=== PATIENT | female | born 1955 | race Caucasian/White ===

== ENCOUNTER 2017-04-03 03:58 | Emergency (ER) | payer MEDICAID, OTHER ==
[~2017-04-03] VITALS: Ht 160 cm; Wt 44.0 kg
[~2017-04-03 03:58] MED LIST: ACET-2619 PO; AMIO200T PO; ASCO500S14 PO; ASPI81CT89 PO; ATI.5 PO; ATOR40TA PO; BISA5ECT2 PO; CARV3.12 PO; CLOP75TA PO; EPOE10002 SUBQ; FAMO-90 PO; FERR-193 PO; FURO-572 PO; GABA300C PO; LEVEMIR SUBQ; MAGN400T11 PO; MIRABULK PO; MIRT30TA PO; MSCON15 PO; MULT-2173 PO; NUTR30LI5 PO; SENN8.6T37 PO; [UNRECOGNIZED DRUG - CODE] PO
--- NOTE | 2017-04-03 03:58 | NUR ---
0351- PT BIBA BLS. TAKEN TO BED 3
[2017-04-03 04:00] VITALS: BP 132/76
--- NOTE | 2017-04-03 04:00 | NUR ---
BIBA WITH C/O PAIN ON HER LEFT KNEE, S/P FALL UNWITNESSED.PATIENT ALERT AND CRYING
--- NOTE | 2017-04-03 04:04 | NUR ---
Dr. Sanchez evaluating patient at bedside.
[2017-04-03] MEDS ORDERED: HYDROmorphone PFS 2 MG/ML SYR IM ONE (04:10)
[2017-04-03 04:33] LABS: HEMATOCRIT 41.6 % (36-48); HEMOGLOBIN 13.2 g/dL (12.0-16.0); MEAN CORPUSCULAR HEMOGLOBIN 28 pg (27-31); MEAN CORPUSCULAR HGB CONC 32 g/dL (33-37); MEAN CORPUSCULAR VOLUME 89 fL (80-94); PLATELET COUNT (AUTO) 184 K/uL (140-450); RED BLOOD CELL COUNT(AUTO) 4.66 MIL/uL (4.20-5.40); RED CELL DISTRIBUTION WIDTH 15.9 % (11.6-13.7); WHITE BLOOD COUNT (AUTO) 11.9 K/uL (4.8-10.8)
[2017-04-03] MEDS ORDERED: MORPHINE SULFATE 4 MG/ML SYR IM ONE (04:45)
[2017-04-03 04:48] LABS: LYMPHOCYTES % (MANUAL) 19 % (20-46); MONOCYTES % (MANUAL) 1 % (5-12)
[2017-04-03 04:53] LABS: ALBUMIN 2.9 g/dL (3.4-5.0); ANION GAP 8.6 (8-16); CARBON DIOXIDE 32.6 mmol/L (21-32); CREATININE 0.8 mg/dL (0.6-1.3); POTASSIUM 4.2 mmol/L (3.5-5.1); TOTAL BILIRUBIN 0.2 mg/dL (0.0-1.0)
[2017-04-03 04:58] LABS: PROTHROMBIN TIME 9.9 secs (10.8-13.4)
--- NOTE | 2017-04-03 06:00 | NUR ---
ALL RESULTS BACK AND NOTED BY ERMD AND FOR D/C.
[2017-04-03] MEDS ORDERED: MORPHINE SULFATE 5 MG/ML VIAL IM ONE (06:05)
--- NOTE | 2017-04-03 06:20 | NUR ---
REPORT GIVEN TO PRISCA CASANOVA.
--- NOTE | 2017-04-03 07:26 | NUR ---
ASSUMED PATIENT CARE, CONCUR WITH PREVIOUS CARE AND ASSESSMENTS, PATIENT ASLEEP AT THIS TIME. AWAITING MEDICAL TRANSPORT FOR [place]SF[place] [facility] [place]
[2017-04-03 07:51] VITALS: BP 111/75
--- NOTE | 2017-04-03 07:53 | NUR ---
PICKED UP BY AMBULANCE PERSONNEL FOR [place]SF[place] BACK [place] [facility] [place] CARE ENDORSED TO MEDICS.
== END 2017-04-03 07:53 ==
LOC: MED 03:58
DX: S82.142A Displaced bicondylar fracture of left tibia, initial encounter for closed fracture (principal); E11.9 Type 2 diabetes mellitus without complications; I10 Essential (primary) hypertension; Z89.512 Acquired absence of left leg below knee; Z79.899 Other long term (current) drug therapy; Z79.82 Long term (current) use of aspirin; W19.XXXA Unspecified fall, initial encounter; Y93.89 Activity, other specified; Y92.89 Other specified places as the place of occurrence of the external cause; Y99.8 Other external cause status
CPT/HCPCS: 36415; 73562; 80053; 84484; 85025; 85610; 93005; 96372; 99285; J1170; J2270; Q0092

== ENCOUNTER 2017-10-30 22:11 | Inpatient (IN) | payer MEDICAID ==
[~2017-10-30] VITALS: Ht 154.9 cm; Wt 52.2 kg
[2017-10-30 22:11] VITALS: BP 134/76
[~2017-10-30 22:11] MED LIST changes: -FERR-193 PO; +FERR-20 PO
--- NOTE | 2017-10-30 22:56 | NUR ---
GAVE REPORT TO MONET CASANOVA
--- NOTE | 2017-10-30 23:05 | NUR ---
patient biba with c/o pain in left knee and cough . DENIES N/V/D;skin has edema, redness with bruising throught arms and legs. 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 AAOX4 WITH EVEN AND STEADY GAIT; LUNGS CLEAR BL; HR EVEN AND REGULAR; PT DENIES ANY FEVER, CP, SOB AT THIS TIME; PATIENT STATES PAIN OF 6/10 AT THIS TIME; VSS; PATIENT POSITIONED FOR COMFORT; HOB ELEVATED; BEDRAILS UP X2; BED DOWN. ER MD MADE AWARE OF PT STATUS.
--- NOTE | 2017-10-31 01:15 | NUR ---
pt was placed on bed moore, was not able to produce urine
--- NOTE | 2017-10-31 01:26 | NUR ---
patient refused straight cath. no urine was collected
[2017-10-31] MEDS ORDERED: LEVOFLOXACIN 750 MG TAB PO ONE (02:10)
--- NOTE | 2017-10-31 02:24 | NUR ---
OK PER DR HATFIELD TO GIVE LEVAQUIN WITHOUT LABS BEING DRAWN AND NO URINE OBTAINED AT THIS TIME.
--- NOTE | 2017-10-31 04:26 | NUR ---
pt is resting in bed
[2017-10-31 04:50] LABS: ANION GAP 16.6 (8-16); CARBON DIOXIDE 19.7 mmol/L (21-32); POTASSIUM 5.3 mmol/L (3.5-5.1)
[2017-10-31 04:56] LABS: TOTAL BILIRUBIN 0.8 mg/dL (0.0-1.0)
[2017-10-31] MEDS ORDERED: NACL 0.9% 1,000 ML IV SCH (05:03)
[2017-10-31] MEDS ORDERED: ALBUTEROL SULFATE/IPRATROPIU 3 ML SOL IH PRN (05:10)
--- NOTE | 2017-10-31 05:10 | NUR ---
Pt transferred to ICU8 viaBED WITH JOCELYNE ALICIA AND JOCELYNE HEALY .
[2017-10-31] MEDS ORDERED: LORazepam 0.5 MG TAB PO PRN (05:15)
[2017-10-31] MEDS ORDERED: ACETAMINOPHEN 325 MG TAB PO PRN (05:15)
--- NOTE | 2017-10-31 05:20 | NUR ---
RECEIVED PT FROM ER AT 0515. PT STABLE AT THIS TIME. AFEBRILE. ANXIOUS. C/O PAIN ON LEFT STUMP. PT AAOX1. NO SIGNS OF DISTRESS NOTED. AFIB ON MONITOR. SBP BETWEEN HIGH 90S AND LOW 100S. NO C/O CHEST PAIN. LUNG SOUNDS RHONCHI. PT HAS COUGH. PT IN ROOM AIR. DOES NOT APPEAR TO BE IN ANY DISTRESS. ABDOMEN ROUND, SOFT AND NONDISTENDED. RECEIVED PT WITH SMALL BM THAT IS LIGHT BROWN TO YELLOW IN COLOR. NO WILLOUGHBY CATHETER. PT HAS ONE PERIPHERAL IV ACCESS ON RIGHT UPPER ARM THAT IS PATENT AND INTACT AT THIS TIME. PT HAS SKIN TEAR ON RIGHT WRIST, RIGHT FOREARM AND LEFT WRIST. PICTURES WERE TAKEN. MRSA SWAB DONE. ALL SAFETY PRECAUTIONS ARE IN PLACE. WILL CONTINUE TO MONITOR PT.
--- NOTE | 2017-10-31 05:29 | NUR ---
Clayton ramirez in [facility] - 10/31/17 at 0531 by MEDDCV transferred pt, gave report to NEUROSURGICAL NURSE PRACTITIONER
--- NOTE | 2017-10-31 06:32 | NUR ---
PATIENT HAS BEEN SCREENED AND CATEGORIZED HIGH NUTRITION RISK. PATIENT WILL BE SEEN WITHIN 1-2 DAYS OF ADMISSION. 11/01/17-11/02/17 MAKENNA FUENTES MS, RDN
[2017-10-31] MEDS ORDERED: PIPERACILLIN/TAZOBACTAM 3.375 GM VIAL IV ONE (06:39)
[2017-10-31] MEDS: HYDROcodone/APAP 7.5/325 MG 1 TAB PO PRN ×2 (06:39→20:19)
[2017-10-31] MEDS: PIPER/TAZO 3.375GM/D5W PREMIX 50 ML IV SCH ×3 (06:41→19:20)
[2017-10-31] MEDS: ALBUTEROL SULFATE/IPRATROPIU 3 ML SOL IH SCH ×3 (06:54→19:03)
[2017-10-31] MEDS: BLOOD GLUCOSE MONITORING 1 DEV DEV FS SCH ×4 (07:00→21:54)
[2017-10-31] MEDS: DEXTROSE 50% 50 ML SYR IVP PRN (07:05)
--- NOTE | 2017-10-31 07:06 | NUR ---
pt unable to produce sputum at this time
--- NOTE | 2017-10-31 07:15 | NUR ---
REPORT GIVEN TO MORNING RN FOR CONTINUITY OF CARE. VS STABLE AT THIS TIME. ENDORSED TO FOLLOW-UP REGARDING CODE STATUS OF PT.
--- NOTE | 2017-10-31 07:55 | NUR ---
RECEIVED REPORT FROM TURNER CASANOVA. SHE IS AWAKE AND ALERT ORIENTED X1. SKIN DRY WARM TO TOUCH LEFT LEG BELOW KNEE AMPUTATED THE STUMP IS NOT QUITED HEAL YET BOTH ARMS HAS PENDING EDEMA AND BRUIT ALL OVER ,HAS BIG DRY OPEN SKIN ON LEFT KNEE. ALL THE TOES ON RT FOOT ARE AMPUTATED . HAS IV SITE ON RT UPPER ARM.SHE IS IN ROOM AIR O2 SAT 96%.
[2017-10-31 08:00] VITALS: BP 127/62
[2017-10-31] MEDS: DOCUSATE SODIUM 100 MG GELCAP PO SCH ×2 (08:34→20:18)
[2017-10-31] MEDS: LACTOBACILLUS RHAMNOSUS GG 1 EACH CAP PO SCH (08:34)
[2017-10-31] MEDS: AMIODARONE 200 MG TAB PO SCH ×2 (08:35→20:18)
[2017-10-31] MEDS: SENNA 8.6 MG TAB PO SCH ×2 (08:35→20:19)
[2017-10-31] MEDS: FAMOTIDINE 20 MG TAB PO SCH ×2 (08:37→20:19)
[2017-10-31] MEDS: DEXT 5% /NACL 0.9% 1,000 ML IV SCH ×2 (08:51→19:37)
[2017-10-31] MEDS ORDERED: NON-FORMULARY ITEM (Amino Acids/Protein Hydrolys (Pro-Stat Sugar Free Liquid Pkt) 30 ML) PO SCH (09:00)
[2017-10-31] MEDS ORDERED: CLOPIDOGREL 75 MG TAB PO SCH (09:00)
[2017-10-31] MEDS ORDERED: BISACODYL 5 MG TABEC PO SCH (09:00)
[2017-10-31] MEDS ORDERED: FERROUS SULFATE 325 MG TABEC PO SCH (09:00)
[2017-10-31] MEDS ORDERED: MAGNESIUM OXIDE 400 MG TAB PO SCH (09:00)
[2017-10-31] MEDS ORDERED: CARVEDILOL 3.125 MG TAB PO SCH (09:00)
[2017-10-31] MEDS ORDERED: INSULIN LANTUS 100 UNITS/ML 10 ML VIAL SUBQ SCH (09:00)
[2017-10-31] MEDS ORDERED: FUROSEMIDE 20 MG TAB PO SCH (09:00)
[2017-10-31] MEDS ORDERED: POLYETHYLENE GLYCOL 17 GM/PKT PO SCH (09:00)
[2017-10-31] MEDS ORDERED: ASPIRIN 81 MG TAB.CHEW PO SCH (09:00)
[2017-10-31] MEDS: HYDRAGUARD CREAM TP SCH ×2 (09:00→21:55)
--- NOTE | 2017-10-31 09:00 | NUR ---
ABLE TO EAT HER BREAKFAST, EGG CEREAL AND ORANGE JUICE.
[2017-10-31] MEDS ORDERED: SODIUM POLYSTYRENE 15 GM/60 ML UDBTL PO SCH (09:28)
[2017-10-31] MEDS: ACETAMINOPHEN 325 MG TAB PO PRN (10:47)
[2017-10-31 12:00] VITALS: BP 103/69
--- NOTE | 2017-10-31 12:00 | NUR ---
BL. GLUCOSE 187 INSULIN COVER ORDERED..
--- NOTE | 2017-10-31 12:41 | NUR ---
CALL FAMILY TALK TO KARENA MAITE [[phone]] INFORM HIM THAT PATIENT IS ADMIT IN ICU [facility] HE SAID THAT HE WILL COME TO VISIT AND GIVE HIS WORK PHONE NUMBER [phone].
--- NOTE | 2017-10-31 12:53 | NUR ---
pt is asleep hhn not given no apparent sob
[2017-10-31] MEDS ORDERED: MORPHINE TAB ER 15 MG TABER PO SCH (13:00)
--- NOTE | 2017-10-31 13:00 | NUR ---
LUNCH TOOK FEW SPOON OF PUDDING
--- NOTE | 2017-10-31 13:02 | NUR ---
HR 82 BP 80/75 RESP. 11 HOLD MORPHINE SULPHATE 45MG PO , DR. MELVIN PAGE,.
--- NOTE | 2017-10-31 13:40 | NUR ---
CALLED DR. MIRANDA ABOUT CONSULTATION.
[2017-10-31] MEDS: GABAPENTIN 300 MG CAP PO SCH ×2 (13:44→20:19)
--- NOTE | 2017-10-31 15:00 | NUR ---
TOO X-RAY HASCT SCAN OF HEAD DONE.
[2017-10-31] MEDS: INSULIN LISPRO SLIDING SCALE 100 UNITS/ML VIAL SUBQ PRN (16:38)
--- NOTE | 2017-10-31 16:45 | NUR ---
SEEN BY DR. MIRANDA AT BEDSIDE TO EVALUATE POSSIBLE TO INSERT G TUBE FOR FEEDING.
--- NOTE | 2017-10-31 17:00 | NUR ---
THE BROTHER IN LAW KARENA WAS CALL TO NOTIFY ABOUT THE MATTER BUT NO DECISION MADE AT THIS TIME.
[2017-10-31 18:00] VITALS: BP 88/56
--- NOTE | 2017-10-31 18:30 | NUR ---
ALL BLOOD WORK WAS DONE.
[2017-10-31 19:07] LABS: BASOPHILS % (AUTO) 0.1 % (0.0-2.0); EOSINOPHILS % (AUTO) 0.1 % (0.0-4.0); HEMATOCRIT 38.3 % (36-48); HEMOGLOBIN 12.2 g/dL (12.0-16.0); LYMPHOCYTES # (AUTO) 2.1 K/uL (2.5-16.5); LYMPHOCYTES % (AUTO) 24.4 % (20.5-51.1); MEAN CORPUSCULAR HEMOGLOBIN 32 pg (27-31); MEAN CORPUSCULAR HGB CONC 32 g/dL (33-37); MEAN CORPUSCULAR VOLUME 100.9 fL (80-94); MONOCYTES # (AUTO) 1.4 K/uL (0.8-1.0); NEUTROPHILS # (AUTO) 5.1 K/uL (1.8-7.7); NEUTROPHILS % (AUTO) 59.4 % (42.2-75.2); PLATELET COUNT (AUTO) 167 K/uL (140-450); RED CELL DISTRIBUTION WIDTH 15.3 % (11.6-13.7); WHITE BLOOD COUNT (AUTO) 8.6 K/uL (4.8-10.8)
--- NOTE | 2017-10-31 19:15 | NUR ---
REPORT GIVE TO VICENTA.
[2017-10-31] MEDS: MIRTAZAPINE 15 MG TAB PO SCH (19:20)
--- NOTE | 2017-10-31 19:25 | NUR ---
RECEIVED REPORT FROM MORNING SHIFT RN FOR CONTINUITY OF CARE. PT IS AFEBRILE AOX1, IS ANXIOUS AND STATED PAIN IN BOTH LEGS AND ARMS. LEFT BELOW KNEE AMPUTATION AND AMPUTATION OF TOES ON RIGHT FOOT. BRUISING ON BOTH RIGHT AND LEFT FOREARMS. SKIN TEAR ON RIGHT ARM CLEANSED WITH NORMAL SALINE AND COVERED WITH FOAM BANDAGE.ON ROOM AIR, LUNG SOUNDS RHONCHI ON UPPER LOBES ON AUSCULTATION. BOWEL SOUNDS HYPOACTIVE, ABDOMEN IS ROUND AND NONDISTENDED. NO WILLOUGHBY CATHETER IN PLACE. IV ON RIGHT UPPER ARM IS ASYMPTOMATIC AND INTACT INFUSING. CALL LIGHT IS WITHIN REACH, HOB ELEVATED ABOVE 30 DEG AND IN LOWEST POSITION, PILLOW SUPPORT PROVIDED, WILL CONTINUE TO MONITOR.
[2017-10-31 19:31] LABS: ANION GAP 10.3 (8-16); CARBON DIOXIDE 23.8 mmol/L (21-32); PHOSPHORUS 3.5 mg/dL (2.5-4.9); POTASSIUM 4.1 mmol/L (3.5-5.1); THYROID STIMULATING HORMONE 3.17 uIU/mL (0.34-3.74); TOTAL BILIRUBIN 0.6 mg/dL (0.0-1.0)
[2017-10-31 19:34] LABS: FREE T4 (FREE THYROXINE) 0.78 ng/dL (0.76-1.46); MAGNESIUM 1.9 mg/dL (1.8-2.4); PHOSPHORUS 3.5 mg/dL (2.5-4.9); THYROID STIMULATING HORMONE 3.28 uIU/mL (0.34-3.74)
[2017-10-31 19:36] LABS: CHOL/HDL RATIO 4.8 (1-4.5)
[2017-10-31 19:39] LABS: PROTHROMBIN TIME 15.3 secs (10.8-13.4)
[2017-10-31 20:00] VITALS: BP 87/69
[2017-10-31] MEDS: ATORVASTATIN 20 MG TAB PO SCH (20:18)
[2017-10-31] MEDS: INSULIN LANTUS 100 UNITS/ML 10 ML VIAL SUBQ SCH (20:44)
--- NOTE | 2017-10-31 20:55 | NUR ---
PT REPOSITIONED, PILLOW SUPPORT PROVIDED. PRN NORCO ADMINISTERED FOR PAIN FLACC 7.
[2017-10-31] MEDS ORDERED: MIRTAZAPINE 15 MG TAB PO SCH (21:00)
[2017-11-01] VITALS: BP 93/60
--- NOTE | 2017-11-01 00:16 | NUR ---
PT SLEEPING QUIETLY, ON 3L N/C O2SAT 96-98%.
[2017-11-01] MEDS: PIPER/TAZO 3.375GM/D5W PREMIX 50 ML IV SCH ×5 (00:51→23:51)
[2017-11-01 04:00] VITALS: BP 77/57
--- NOTE | 2017-11-01 04:13 | NUR ---
NOTIFIED DR. CAMPOS THAT PATIENT IS HYPOTENSIVE (72/48 MAP=61). WILL CONTINUE TO MONITOR AND RECHECK BP IN AN HOUR.
[2017-11-01] MEDS: HYDROcodone/APAP 7.5/325 MG 1 TAB PO PRN ×2 (04:30→19:42)
[2017-11-01] MEDS: GABAPENTIN 300 MG CAP PO SCH ×3 (04:30→21:00)
--- NOTE | 2017-11-01 05:00 | NUR ---
DURING CLEANING PATIENT, FOUND NON BLANCHABLE REDNESS [id number] ON LEFT HIP, PHOTO TAKEN AND NOTED.
--- NOTE | 2017-11-01 05:25 | NUR ---
PROVIDED MORNING CARES TO PATIENT, CHANGED LINENS AND GOWN, REPOSITIONED, PILLOW SUPPORT PROVIDED. ELEVATED HOB ABOVE 30 DEG. PT WAS COOPERATIVE WITH DRESSING CHANGES. LAB WAS UNABLE TO DRAW BLOOD FROM PATIENT LEFT/RIGHT FOREARM. PT IS ON 3L N/C AND SLEEPING QUIETLY.
[2017-11-01] MEDS: ALBUTEROL SULFATE/IPRATROPIU 3 ML SOL IH SCH ×3 (06:00→18:52)
[2017-11-01] MEDS: DEXTROSE 50% 50 ML SYR IVP PRN (06:42)
[2017-11-01] MEDS: BLOOD GLUCOSE MONITORING 1 DEV DEV FS SCH ×4 (06:45→21:04)
[2017-11-01] MEDS: DEXT 5% /NACL 0.9% 1,000 ML IV SCH ×2 (06:48→20:00)
--- NOTE | 2017-11-01 07:00 | NUR ---
BLOOD SUGAR RECHECKED AT 158MG/DL = 15 MIN AFTER GIVEN DEXTROSE 50% ABBOJECT IVP.
--- NOTE | 2017-11-01 07:22 | NUR ---
PROVIDED BEDSIDE REPORT TO MORNING SHIFT RN FOR CONTINUITY OF CARE.
--- NOTE | 2017-11-01 07:25 | NUR ---
RECEIVE REPORT FROM NIGHT NURSE . PATIENT IS SLEEPING SKIN DRY COOL TO TOUCH.
[2017-11-01 08:00] VITALS: BP 64/47
--- NOTE | 2017-11-01 08:00 | NUR ---
REPOSITION, ORAL CARE GIVEN
[2017-11-01] MEDS: LACTOBACILLUS RHAMNOSUS GG 1 EACH CAP PO SCH (08:12)
[2017-11-01] MEDS: DOCUSATE SODIUM 100 MG GELCAP PO SCH ×2 (08:12→21:01)
[2017-11-01] MEDS: FAMOTIDINE 20 MG TAB PO SCH ×2 (08:13→21:01)
[2017-11-01] MEDS: SENNA 8.6 MG TAB PO SCH ×2 (08:13→21:00)
[2017-11-01] MEDS: MULTIVITAMIN 1 TAB PO SCH (08:13)
[2017-11-01] MEDS: AMIODARONE 200 MG TAB PO SCH ×2 (08:14→21:01)
--- NOTE | 2017-11-01 08:15 | NUR ---
SEEN BY MARTINA LONGORIA AT BEDSIDE ,PT. IS DROWSY SLEEPING.
[2017-11-01] MEDS: HYDRAGUARD CREAM TP SCH ×2 (09:00→21:05)
--- NOTE | 2017-11-01 09:00 | NUR ---
REFUSED BREAKFAST , IN UPSET MOOD.
--- NOTE | 2017-11-01 09:15 | NUR ---
BLOOD WORK DONE.
--- NOTE | 2017-11-01 09:20 | NUR ---
PATIENT AWAKE REFUSE TO TAKE HER ROUTINE MEDICATION.
[2017-11-01 09:25] LABS: BASOPHILS # (AUTO) 0.1 K/uL (0.00-0.22); BASOPHILS % (AUTO) 0.7 % (0.0-2.0); EOSINOPHILS # (AUTO) 0.1 K/uL (0-0.4); EOSINOPHILS % (AUTO) 0.9 % (0.0-4.0); HEMATOCRIT 38.9 % (36-48); HEMOGLOBIN 12.2 g/dL (12.0-16.0); LYMPHOCYTES # (AUTO) 1.4 K/uL (2.5-16.5); LYMPHOCYTES % (AUTO) 20.6 % (20.5-51.1); MEAN CORPUSCULAR HEMOGLOBIN 32 pg (27-31); MEAN CORPUSCULAR HGB CONC 31 g/dL (33-37); MEAN CORPUSCULAR VOLUME 100.9 fL (80-94); MONOCYTES # (AUTO) 0.8 K/uL (0.8-1.0); NEUTROPHILS # (AUTO) 4.7 K/uL (1.8-7.7); PLATELET COUNT (AUTO) 143 K/uL (140-450); RED BLOOD CELL COUNT(AUTO) 3.85 MIL/uL (4.20-5.40); RED CELL DISTRIBUTION WIDTH 15.2 % (11.6-13.7)
[2017-11-01 09:44] LABS: ANION GAP 13.2 (8-16); CARBON DIOXIDE 21.2 mmol/L (21-32); CREATININE 0.9 mg/dL (0.6-1.3); POTASSIUM 3.4 mmol/L (3.5-5.1)
--- NOTE | 2017-11-01 09:55 | NUR ---
SEEN BY DR. PRATER AND HIS TEAM AT BED SIDE, WILL GET IN TOUCH WITH PATIENT FAMILY.
[2017-11-01 10:00] LABS: MAGNESIUM 1.7 mg/dL (1.8-2.4)
--- NOTE | 2017-11-01 10:00 | NUR ---
PATIENT STILL REFUSE TO TAKE HER MEDICATION.
[2017-11-01 10:25] LABS: PHOSPHORUS 2.9 mg/dL (2.5-4.9)
[2017-11-01 10:57] LABS: NEUTROPHILS % (AUTO) 66.7 % (42.2-75.2)
[2017-11-01 10:58] LABS: MONOCYTES % (AUTO) 11.1 % (1.7-9.3)
--- NOTE | 2017-11-01 11:37 | NUR ---
BLOOD GLUCOSE 77 NO INSULIN COVER NEEDED.
[2017-11-01 12:00] VITALS: BP 77/46
--- NOTE | 2017-11-01 13:00 | NUR ---
U/A OF UPPER EXTREAMITIE DONE.
--- NOTE | 2017-11-01 13:30 | NUR ---
AWAKE AND EAT ABOUT 35% OF PUREE LUNCH.
--- NOTE | 2017-11-01 14:02 | NUR ---
pt sleeping with no signs of distress noted at this time no hhn given
[2017-11-01] MEDS: ACETAMINOPHEN 325 MG TAB PO PRN (14:59)
[2017-11-01 16:00] VITALS: BP 100/46
--- NOTE | 2017-11-01 16:45 | NUR ---
SEEN BY DR. THAKKAR. NEW ORDER RECEIVED.
[2017-11-01] MEDS: MIRTAZAPINE 15 MG TAB PO SCH (17:00)
--- NOTE | 2017-11-01 18:00 | NUR ---
REPOSITION PT SAID SHE FEEL LIKE TO HAVE BM AND URINE BUT SHE UNABLE TO GO. DR. CAMPOS NOTIFIED.
--- NOTE | 2017-11-01 19:20 | NUR ---
REPORT GIVE TO AMI.
--- NOTE | 2017-11-01 19:25 | NUR ---
RECEIVED BEDSIDE REPORT FROM MORNING SHIFT. AAO X1, ABLE TO MAKE NEEDS KNOWN AND FOLLOW COMMANDS. ON O2 2L/M VIA NC, BILATERAL DIMINISHED LUNGS SOUND NOTED. PATIENT COMPLAINT PAIN ON BILATERAL LOWER LEGS 6/10. LEFT BELOW KNEE AMPUTATION AND AMPUTATION OF TOES ON RIGHT FOOT. BRUISING ON BOTH RIGHT AND LEFT FOREARMS. SKIN TEAR ON RIGHT ARM CLEANSED WITH NORMAL SALINE AND COVERED WITH FOAM BANDAGE. ACTIVE BOWEL SOUNDS FROM ALL4 QUADS. NO WILLOUGHBY CATHETER IN PLACE. IV ON RIGHT UPPER ARM IS ASYMPTOMATIC AND INTACT INFUSING D5NS 90ML/HR. HOB ELEVATED ABOVE 30 DEGREE. BED IN LOWEST POSITION. CALL LIGHT IS WITHIN REACH. WILL CONTINUE TO MONITOR.
[2017-11-01 20:00] VITALS: BP 105/84
--- NOTE | 2017-11-01 20:00 | NUR ---
INSERTED WILLOUGHBY CATH, TOLERATED WELL. PATIENT URINATED 1L AT THIS TIME. PRN PAIN MEDICATION ADMINISTERED AT 1944. WILL CONTINUE TO MONITOR.
[2017-11-01 20:35] LABS: APPEARANCE,URINE CLOUDY (CLEAR); BILIRUBIN,URINE 1+ (NEGATIVE); BLOOD, URINE 3+ (NEGATIVE); COLOR,URINE ORANGE (YELLOW); LEUKOCYTE ESTERASE ,URINE NEGATIVE (NEGATIVE); NITRITE, URINE POSITIVE (NEGATIVE); UGLUCOSE NEGATIVE (NEGATIVE)
[2017-11-01 20:49] LABS: RBC,URINE 20-50 /HPF (0-5); WBC,URINE 6-15 (FEW) /HPF (0-5)
[2017-11-01 20:50] LABS: YEAST,URINE Few /HPF (None Seen)
[2017-11-01] MEDS: ATORVASTATIN 20 MG TAB PO SCH (21:01)
[2017-11-01] MEDS: INSULIN LANTUS 100 UNITS/ML 10 ML VIAL SUBQ SCH (21:03)
[2017-11-01] MEDS: INSULIN LISPRO SLIDING SCALE 100 UNITS/ML VIAL SUBQ PRN (21:04)
--- NOTE | 2017-11-01 21:20 | NUR ---
ADMINISTERED SCHEDULED MEDICATIONS ORDERED, TOLERATED WELL. BS CHECKED 154 NOTED. ADMINISTERED LANTUS 8UNITS AND HUMOLOG 2[address]ITS. ST ON THE MONITOR. DENIES PAIN AT THIS TIME. WILL CONTINUE TO MONITOR.
--- NOTE | 2017-11-01 23:10 | NUR ---
PATIENT IN ASLEEP AT THIS TIME, AROUSABLE TO VOICE. NO ACUTE DISTRESS NOTED. ST ON THE MONITOR. HR 108 NOTED. DENIES PAIN. WILL CONTINUE TO MONITOR.
[2017-11-02] VITALS (9 sets, daily range): BP systolic 87–121; BP diastolic 56–81
--- NOTE | 2017-11-02 01:00 | NUR ---
PATIENT IN ASLEEP AT THIS TIME, AROUSABLE TO VOICE. SR TO ST ON THE MONITOR. DENIES PAIN AT THIS TIME. WILL CONTINUE TO MONITOR.
--- NOTE | 2017-11-02 03:00 | NUR ---
NO ACUTE DISTRESS NOTED. DENIES PAIN OR DISCOMFORT NOTED.
--- NOTE | 2017-11-02 04:10 | NUR ---
DURING MORNING CARE, FOUND THAT PATIENT HAS IMPACTION AND MANUALLY REMOVED BY NURSE. AFTER REMOVED IMPACTION, PATIENT IS SLEEPING WELL. NO ACUTE DISTRESS NOTED. WILL CONTINUE TO MONITOR.
[2017-11-02] MEDS: DEXT 5% /NACL 0.9% 1,000 ML IV SCH ×2 (05:46→16:24)
[2017-11-02] MEDS: GABAPENTIN 300 MG CAP PO SCH ×3 (05:47→20:57)
[2017-11-02] MEDS: PIPER/TAZO 3.375GM/D5W PREMIX 50 ML IV SCH ×3 (05:47→18:05)
[2017-11-02] MEDS: ALBUTEROL SULFATE/IPRATROPIU 3 ML SOL IH SCH ×4 (06:00→18:51)
--- NOTE | 2017-11-02 06:00 | NUR ---
GIVEN SCHEDULED MEDICATIONS ORDERED. NO ACUTE DISTRESS NOTED. SR ON THE MONITOR. WILL CONTINUE TO MONITOR.
--- NOTE | 2017-11-02 07:20 | NUR ---
BEDSIDE REPORT GIVEN TO MORNING NURSE.
--- NOTE | 2017-11-02 07:26 | NUR ---
RECEIVED REPORT FROM GERARDO RNTITO. PT IS SLEEPING BUT AROUSES, A&0X1; RESPONDS TO NAME BUT IS CONFUSED. PT IS CONNECTED TO MEDICAL CONSULTANT. PTS LUNG SOUNDS ARE DIMINISHED IN ALL LOBES. S1S2 HEARD. PT IS ON 2L NASAL CANULA. PT'S SKIN IS NOT INTACT; SHE HAS SEVERAL SKIN TEARS ON BOTH UPPER EXTREMITIES, LEFT KNEE OPEN WOUND, LEFT BELOW THE KNEE AMPUTATION WHICH HAS AN OPEN WOUND, BROWN WOUND BED AND PAINFUL WHEN ASSESSED, BOTH PT UPPER EXTREMITIES ARE SEEPING FLUID. PT HAS REDDENED AREA ON SACRAL AND LEFT HIP. PT HAS DRESSING OVER OPEN WOUNDS AND ON REDDENED AREAS. PT HAS ALL TOES ON RIGHT FOOT AMPUTATED. PTS ABDOMEN IS FIRM, DISTENDED, SHE DENIES PAIN. BOWEL SOUNDS ARE HYPOACTIVE. PT HAS WILLOUGHBY CATHETER IN PLACE WITH DARK NATALIIA COLORED FLUID IN DRAINAGE COLLECTION BAG. PT HAS LEFT UPPER ARM PERIPHERAL IV 24 ASHLEY, LEFT IJ 20 ASHLEY. PT'S RIGHT UPPER ARM IV IS RUNNING D5.45NS AT 90ML/HR. Addendum: 11/02/17 at 0806 by Kamila Rojo RN EDEMATOUS ON UPPER AND LOWER EXTREMITIES; +2 PITTING Addendum: 11/02/17 at 0815 by Kamila Rojo RN D5.9NS
[2017-11-02] MEDS: BLOOD GLUCOSE MONITORING 1 DEV DEV FS SCH ×4 (07:53→21:36)
--- NOTE | 2017-11-02 08:10 | NUR ---
CALLED LAB TO REQUEST MORNING LABS TO BE DRAWN. SPOKE WITH UMANG, HE SAID HE WOULD COME TO ICU [facility].
--- NOTE | 2017-11-02 08:47 | NUR ---
DR. MARCELINO AND RESIDENT TEAM CAME TO SEE PT. ORDERS RECEIVED. CHANGING TO ICU STATUS.
--- NOTE | 2017-11-02 08:53 | NUR ---
SPOKE WITH DR. LOYOLA; CANCELLED PICC LINE ORDER AND REQUESTED TO ORDER CODE STATUS.
[2017-11-02] MEDS ORDERED: NACL 0.9% 1,000 ML IV SCH (09:00)
[2017-11-02] MEDS: HYDRAGUARD CREAM TP SCH ×2 (09:00→21:38)
[2017-11-02] MEDS ORDERED: NOREPINEPHRINE 4 MG in DEXTROSE 5% 250 ML IV PRN (09:10)
[2017-11-02] MEDS ORDERED: ALBUMIN HUMAN 5 % 250 ML IV SCH (09:30)
[2017-11-02 09:33] LABS: BASOPHILS # (AUTO) 0.1 K/uL (0.00-0.22); BASOPHILS % (AUTO) 1.8 % (0.0-2.0); EOSINOPHILS % (AUTO) 0.1 % (0.0-4.0); HEMATOCRIT 39.3 % (36-48); HEMOGLOBIN 12.6 g/dL (12.0-16.0); LYMPHOCYTES # (AUTO) 1.1 K/uL (2.5-16.5); MEAN CORPUSCULAR HEMOGLOBIN 32 pg (27-31); MEAN CORPUSCULAR HGB CONC 32 g/dL (33-37); MEAN CORPUSCULAR VOLUME 101.2 fL (80-94); MONOCYTES # (AUTO) 0.8 K/uL (0.8-1.0); MONOCYTES % (AUTO) 11.2 % (1.7-9.3); NEUTROPHILS # (AUTO) 5.2 K/uL (1.8-7.7); NEUTROPHILS % (AUTO) 71.9 % (42.2-75.2); PLATELET COUNT (AUTO) 115 K/uL (140-450); RED BLOOD CELL COUNT(AUTO) 3.88 MIL/uL (4.20-5.40); RED CELL DISTRIBUTION WIDTH 15.5 % (11.6-13.7); WHITE BLOOD COUNT (AUTO) 7.2 K/uL (4.8-10.8)
[2017-11-02 10:10] LABS: ANION GAP 11.6 (8-16); CREATININE 0.9 mg/dL (0.6-1.3)
[2017-11-02 10:13] LABS: POTASSIUM 2.6 mmol/L (3.5-5.1)
[2017-11-02] MEDS ORDERED: POTASSIUM CHLORIDE 40 MEQ, LIDOCAINE 1% 25 MG in NACL 0.9% 250 ML IV ONE (10:15)
[2017-11-02] MEDS: DOCUSATE SODIUM 100 MG GELCAP PO SCH ×2 (10:20→20:55)
[2017-11-02] MEDS: AMIODARONE 200 MG TAB PO SCH ×2 (10:20→20:56)
[2017-11-02] MEDS: SENNA 8.6 MG TAB PO SCH ×2 (10:20→20:58)
[2017-11-02] MEDS: LACTOBACILLUS RHAMNOSUS GG 1 EACH CAP PO SCH (10:20)
[2017-11-02] MEDS: MULTIVITAMIN 1 TAB PO SCH (10:20)
[2017-11-02] MEDS: FAMOTIDINE 20 MG TAB PO SCH ×2 (10:21→20:57)
[2017-11-02 10:25] LABS: MAGNESIUM 1.7 mg/dL (1.8-2.4); PHOSPHORUS 2.3 mg/dL (2.5-4.9)
[2017-11-02] MEDS ORDERED: KCL 20 MEQ/WATER INJ PREMIX 200 ML IV ONE (10:40)
[2017-11-02] MEDS: KCL 20 MEQ/WATER INJ PREMIX 100 ML IV SCH ×3 (11:53→16:27)
--- NOTE | 2017-11-02 12:00 | NUR ---
Stone Crusher Operator's Notes: I attempted to contact patient's Roger Bernabe at . The number was no longer on service.
--- NOTE | 2017-11-02 12:10 | NUR ---
PT ATE LUNCH, APPROXIMATELY 25% OF LUNCH. STATES NOT HUNGRY.
--- NOTE | 2017-11-02 12:15 | NUR ---
Unisaw Operator Notes: I attempted to contact Patient's at a second number provided . The number was a bussines stablishment with not a private voice mail. I ended call with out leaving a Voice MSG.
--- NOTE | 2017-11-02 12:45 | NUR ---
Patient Advocate Notes: I attempted to contact Patient's Brother In law Mr. Kyaw Bernabe at . He was not available and did not respond to call. I left a voicemail MSG and My contact information with a request for a call back.
--- NOTE | 2017-11-02 12:55 | NUR ---
PT IS ASLEEP HHN NOT GIVEN
--- NOTE | 2017-11-02 13:55 | NUR ---
PT STATES THAT SHE FEELS SHE IS UNABLE TO GO TO THE BATHROOM. WANTS SOMETHING STRONGER THAN MEDICATION. DR. FOY ORDERED ENEMA PRN/ DAILY AND DOCUSATE PRN/DAILY.
[2017-11-02] MEDS ORDERED: SODIUM PHOSPHATE 118 ML ENEM RC PRN (14:10)
--- NOTE | 2017-11-02 15:13 | NUR ---
PAGED DR. MELCHOR TO NOTIFY HIM OF THE CONSULTATION FOR WOUND DEBRIDEMENT
--- NOTE | 2017-11-02 15:18 | NUR ---
SPOKE WITH DR. MELCHOR TO LET HIM KNOW OF THE CONSULTATION. HE SAID HE WILL COME BY TO SEE PATIENT.
[2017-11-02] MEDS ORDERED: MAG SULF 2000 MG/WATER PREMIX 50 ML IV SCH (18:00)
[2017-11-02] MEDS: MIRTAZAPINE 15 MG TAB PO SCH (18:08)
--- NOTE | 2017-11-02 18:10 | NUR ---
11/02/17 RD INITIAL ASSESSMENT COMPLETED PLEASE REFER TO NUTRITION ASSESSMENT UNDER CARE ACTIVITY FOR ESTIMATED NUTRITIONAL NEEDS. 1. RECOMMEND CCHO 60 GM PUREE DIET 2. RECOMMEND [address] TO FOLLOW-UP 2-3 DAYS TO REEVALUATE MALNUTRITION STATUS, HIGH RISK JAROD GARCIA, RD
--- NOTE | 2017-11-02 19:48 | NUR ---
GAVE REPORT TO NIGHT RN FOR CONTINUATION OF CARE.
--- NOTE | 2017-11-02 19:49 | NUR ---
RECEIVED REPORT AT PT BEDSIDE FROM DAY SHIFT RN, PT IS A/OX1, ON 2L O2 VIA NASAL CANNULA. PT ABLE TO MAKE NEEDS KNOWN. RESPIRATIONS EVEN AND UNLABORED. PT MULTIPLE WOUNDS, SEE WOUND ASSESSMENT. PT HAS LEFT EJ, ASYMPTOMATIC, INTACT AND PATENT. PT ALSO HAS 24G IV TO RIGHT UPPER ARM. VITAL SIGNS WITHIN NORMAL LIMITS. PT STABLE, NO SIGNS OF DISTRESS NOTED AT THIS TIME. WILL CONTINUE TO MONITOR.
[2017-11-02] MEDS: LACTULOSE 20 GM/30 ML UDC PO SCH (20:55)
[2017-11-02] MEDS: ATORVASTATIN 20 MG TAB PO SCH (20:56)
[2017-11-02] MEDS: INSULIN LANTUS 100 UNITS/ML 10 ML VIAL SUBQ SCH (21:00)
--- NOTE | 2017-11-02 21:00 | NUR ---
ADMINISTERED SCHEDULED MEDICATIONS, PT TOLERATED WELL. NO SWALLOWING PROBLEMS NOTED. HELD LANTUS INSULIN BECAUSE BLOOD SUGAR IS 99 AND PT REFUSES TO EAT, ONLY HAD TWO SPOONFULS OF FOOD. ALSO HELD HEPARIN BECAUSE PLATELETS ARE LOW, PT IS HIGH, AND PT HAS POSSIBLE DEBRIDEMENT PENDING.
[2017-11-02 21:47] LABS: ANION GAP 18.6 (8-16); CARBON DIOXIDE 16.6 mmol/L (21-32); CREATININE 0.8 mg/dL (0.6-1.3); POTASSIUM 3.2 mmol/L (3.5-5.1)
[2017-11-03] VITALS (55 sets, daily range): BP systolic 0–137; BP diastolic 0–117
--- NOTE | 2017-11-03 | NUR ---
ST ON MONITOR, OTHERWISE VITAL SIGNS WITHIN NORMAL LIMITS. PT STABLE, NO SIGNS OF DISTRESS NOTED AT THIS TIME. WILL CONTINUE TO MONITOR.
[2017-11-03] MEDS: PIPER/TAZO 3.375GM/D5W PREMIX 50 ML IV SCH ×5 (00:31→23:33)
[2017-11-03] MEDS: ACETAMINOPHEN 325 MG TAB PO PRN (01:00)
--- NOTE | 2017-11-03 02:33 | NUR ---
ADMINISTERED ORDERED PO POTASSIUM LIQUID. PT TOLERATED WELL. NO SIGNS OF DISTRESS NOTED AT THIS TIME. WILL CONTINUE TO MONITOR.
[2017-11-03] MEDS ORDERED: POTASSIUM CHLORIDE 20% 40 MEQ/15 ML UDC PO SCH (03:00)
--- NOTE | 2017-11-03 03:27 | NUR ---
PT RECEIVING BREATHING TREATMENT.
--- NOTE | 2017-11-03 04:23 | NUR ---
CALLED DR LESTER TO LET HER KNOW THAT PT BREATHS ARE GETTING LABORED AND THAT RESPIRATORY THERAPIST MONET SUGGESTED LASIX AND/OR BIPAP. DR LESTER CAME TO ASSESS PT AND THEN PUT IN NEW ORDERS.
[2017-11-03] MEDS ORDERED: FUROSEMIDE 20 MG/2 ML VIAL IVP SCH (05:00)
--- NOTE | 2017-11-03 05:05 | NUR ---
0425 PLACED PT ON BIPAP DUE TO SOB. ABG WAS DRAWN AND RESULTS GIVEN TO DR VARGAS. PT PLACED ON IPAP 10 EPAP 5 RR 12 FIO2 100%.UNABLE TO GET A SAT READING ON MONITOR DUE TO PT HANDS ARE COLD. ABG SATS WERE 73%. EKG ALSO DONE
[2017-11-03] MEDS: GABAPENTIN 300 MG CAP PO SCH ×3 (05:19→20:41)
[2017-11-03] MEDS: HYDROcodone/APAP 7.5/325 MG 1 TAB PO PRN (05:37)
[2017-11-03 06:18] LABS: T4 (THYROXINE) 5.3 ug/dL (4.5-12.0)
--- NOTE | 2017-11-03 06:37 | NUR ---
PT VOMITED. CLEANED PT AND BED. DR YI IS AT BEDSIDE, HE WAS INFORMED ALONG WITH AN UPDATE ON EVERYTHING ELSE.
[2017-11-03] MEDS: ALBUTEROL SULFATE/IPRATROPIU 3 ML SOL IH SCH ×2 (06:38→13:00)
--- NOTE | 2017-11-03 06:38 | NUR ---
REC'D PT ON JOVANI V60 BIPAP SETTINGS 10\5 RR 12 FIO2 100% ALARMS ON AND AUDIBLE AND AMBU BAG IS AT SIDE OF BIPAP AND BIPAP IS PLUGGED INTO RED OUTLET, I\L TX GIVEN WITH DUONEB 3ML WITH NO ADVERSE REACTION POST TX B\S ARE COARSE BILATERALLY, PT IS WEARING MED FACE MASK AND SKIN INTEGRITY IS INTACT, PT IS RESTING WITH NO SIGNS OF DISTRESS NOTED AT THIS TIME
[2017-11-03] MEDS: DEXTROSE 50% 50 ML SYR IVP PRN ×2 (07:13→07:47)
--- NOTE | 2017-11-03 07:38 | NUR ---
ENDORSED PT TO DAY SHIFT FPGA ENGINEER FOR CONTINUITY OF CARE. PT BS WAS 27, ADMINISTERED DEXTROSE IVP AND RECHECKED AFTER ABOUT 15 MINUTES. BLOOD SUGAR SAYS 28. CHARGE NURSE SAID DAY SHIFT RN WOULD TAKE CARE OF IT.
[2017-11-03] MEDS: BLOOD GLUCOSE MONITORING 1 DEV DEV FS SCH ×4 (07:47→20:40)
--- NOTE | 2017-11-03 07:47 | NUR ---
BS = 38. GIVEN D50W 1 AMP IVP. WILL CONTINUE TO MONITOR.
--- NOTE | 2017-11-03 08:00 | NUR ---
INITIAL SHIFT ASSESSMENT DONE. LETHARGIC BUT FOLLOW SIMPLE COMMAND. NO C/O PAIN. ON BIPAP, TOLERATING SETTINGS FAIRLY BUT TACHYPNEIC. O2 SAT 94-96%. ST ON MONITOR. SBP IN 70'S-90'S. NO ECTOPY NOTED. HOB ELEVATED. UPDATED OF PLAN OF CARE. WILL CONTINUE TO MONITOR.
--- NOTE | 2017-11-03 08:35 | NUR ---
CALLED TO BEDSIDE TO INTUBATE PT PER AND AT BEDSIDE INTUBATED AT 0840 WITH 7.0 ET TUBE AT 18 CM AT GUM LINE VENT SETTINGS AC16 VT 400 PEEP 5 FIO2 100% ALARMS ON AND AUDIBLE B\S ARE COARSE BILATERALLY, ABG DUE AT 1000.
[2017-11-03] MEDS ORDERED: ETOMIDATE 20 MG/10 ML VIAL IVP ONE (08:40)
[2017-11-03] MEDS ORDERED: ROCURONIUM 50 MG/5 ML VIAL IV ONE (08:40)
--- NOTE | 2017-11-03 08:40 | NUR ---
INTUBATED AT THIS TIME BY RESIDENT MD YI AFTER PREMEDICATED WITH ETOMIDATE 20 MG IVP AND ROCURONIUM 20 MG IVP. TOLERATED THE PROCEDURE WELL.
[2017-11-03] MEDS: FAMOTIDINE 20 MG TAB PO SCH ×2 (09:00→20:42)
[2017-11-03] MEDS: LACTULOSE 20 GM/30 ML UDC PO SCH (09:00)
[2017-11-03] MEDS: MULTIVITAMIN 1 TAB PO SCH (09:00)
[2017-11-03] MEDS: SENNA 8.6 MG TAB PO SCH ×2 (09:00→20:42)
[2017-11-03] MEDS: HYDRAGUARD CREAM TP SCH ×2 (09:00→20:45)
[2017-11-03] MEDS: AMIODARONE 200 MG TAB PO SCH ×2 (09:00→20:41)
[2017-11-03] MEDS ORDERED: HYDROmorphone 1 MG/ML AMP IVP SCH (09:00)
[2017-11-03] MEDS ORDERED: LORazepam 2 MG/ML VIAL IVP PRN (09:00)
[2017-11-03] MEDS ORDERED: LORazepam 2 MG/ML VIAL IVP SCH (09:00)
[2017-11-03] MEDS: DOCUSATE SODIUM 100 MG GELCAP PO SCH ×2 (09:00→20:47)
[2017-11-03] MEDS: LACTOBACILLUS RHAMNOSUS GG 1 EACH CAP PO SCH (09:00)
--- NOTE | 2017-11-03 09:00 | NUR ---
SBP IN 30'S. LEVOPHED DRIP STARTED AT 5 MCG/MIN. WILL CONTINUE TO MONITOR.
--- NOTE | 2017-11-03 09:15 | NUR ---
BP = 50/29 mmHg. LEVOPHED DRIP INCREASE TO 10 MCG/MIN. WILL CONTINUE TO MONITOR.
--- NOTE | 2017-11-03 09:15 | NUR ---
INSERTED A 16F NGT ON RIGHT NARES. PLACEMENT CHECK WITH OTHER RN, JOCELYNE TAY. TOLERATED THE PROCEDURE WELL.
--- NOTE | 2017-11-03 09:18 | NUR ---
PT. MEDICAL CONDITION UNSTABLE AT THIS TIME, WOUND CARE EVALUATION PENDING.
--- NOTE | 2017-11-03 09:25 | NUR ---
DR YI INSERTED A NEW TLC ON RIGHT IJ. TOLERATED THE PROCEDURE WELL.
--- NOTE | 2017-11-03 09:30 | NUR ---
SBP IN 20'S. LEVOPHED DRIP INCREASE TO 15 MCG/MIN. WILL CONTINUE TO MONITOR.
--- NOTE | 2017-11-03 09:45 | NUR ---
SBP IN 40'S. LEVOPHED DRIP INCREASE TO 20 MCG/MIN. WILL CONTINUE TO MONITOR.
[2017-11-03 10:13] LABS: BASOPHILS % (AUTO) 0.2 % (0.0-2.0); HEMATOCRIT 33.8 % (36-48); HEMOGLOBIN 10.5 g/dL (12.0-16.0); LYMPHOCYTES % (AUTO) 7.8 % (20.5-51.1); MEAN CORPUSCULAR HEMOGLOBIN 32 pg (27-31); MEAN CORPUSCULAR HGB CONC 31 g/dL (33-37); MEAN CORPUSCULAR VOLUME 104.1 fL (80-94); MONOCYTES # (AUTO) 0.3 K/uL (0.8-1.0); MONOCYTES % (AUTO) 2.8 % (1.7-9.3); NEUTROPHILS # (AUTO) 11.1 K/uL (1.8-7.7); NEUTROPHILS % (AUTO) 89.2 % (42.2-75.2); PLATELET COUNT (AUTO) 112 K/uL (140-450); RED BLOOD CELL COUNT(AUTO) 3.25 MIL/uL (4.20-5.40); RED CELL DISTRIBUTION WIDTH 16.4 % (11.6-13.7); WHITE BLOOD COUNT (AUTO) 12.4 K/uL (4.8-10.8)
[2017-11-03] MEDS: DEXT 5% /NACL 0.9% 1,000 ML IV SCH (10:16)
--- NOTE | 2017-11-03 10:30 | NUR ---
vent check, sxn for c&s small amt of yellow secretions abg drawn on right femoral by dr. olivier and dr. carmen was called
[2017-11-03 10:59] LABS: ANION GAP 13.6 (8-16); CARBON DIOXIDE 19.1 mmol/L (21-32); POTASSIUM 3.7 mmol/L (3.5-5.1)
[2017-11-03 11:03] LABS: ALBUMIN 0.8 g/dL (3.4-5.0); MAGNESIUM 2.6 mg/dL (1.8-2.4); PHOSPHORUS 2.7 mg/dL (2.5-4.9)
--- NOTE | 2017-11-03 11:10 | NUR ---
called to give results of abg and ordered to increase rr to 20 rn ernie notified of changes made to vent
--- NOTE | 2017-11-03 11:30 | NUR ---
SBP IN 80'S PER DOPPLER. LEVOPHED DRIP INCREASE TO 25 MCG/MIN. WILL CONTINUE TO MONITOR.
--- NOTE | 2017-11-03 12:00 | NUR ---
REASSESSMENT DONE. RESPONDS TO PAIN STIMULI ONLY. NO SIGNS OF PAIN OR AGITATION NOTED. TOLERATING CURRENT VENTILATOR SETTINGS FAIRLY. O2 SAT 93-97%. ST ON MONITOR. SBP IN 80'S BY DOPPLER. LEVOPHED DRIP INCREASE TO 30 MCG/MIN. PUT FLAT ON BED D/T LOW BP. UPDATED OF PLAN OF CARE. WILL CONTINUE TO MONITOR.
[2017-11-03] MEDS: NOREPINEPHRINE 8 MG in DEXTROSE 5% 250 ML IV PRN ×3 (12:12→22:26)
--- NOTE | 2017-11-03 13:00 | NUR ---
VENT CHECK, NO SXN REQUIRED AIRWAY IS PATENT UNABLE TO OBTAIN O2 SAT OR BP
[2017-11-03] MEDS ORDERED: LIDOCAINE/EPI 1% 1:100000 20 ML VIAL INJ SCH (13:30)
--- NOTE | 2017-11-03 13:30 | NUR ---
Worm Picker Notes: I call Patient's brother In-Law Kyaw Bernabe at to discuss, confirm and gather Patient's additional information. I asked Mrs. Bernabe about Patient's and family contact information. Per Mr. Bernabe Patient's Roger Bernabe is been in intermediate for over a year due to to violent behaviors while intoxicated with alcohol in the pass. According Mr. Bernabe he is an alcoholic with very short temper that has burn all his bridges with family; and that is very radhika to even been communicating with him (his brother Kyaw Bernabe) Via Phone only; because he is not allowed in his home. Per Mr. Kyaw Bernabe Both Patient and have been isolated from their families and have not been responsible in their lives therefore; none of the family from neither side communicates or have a relationship with them. Fritz Card Patient became sick and unable to stay at home about 3-5 years ago. Patient was placed in usp care at [facility] between 3-4 years ago and slowly her health has declined. Fritz Card Patient is been under [facility] care and should be back to facility when discharge from [facility]. Patient's has brothers and a sister but have not speak for years. Fritz Card since her hospitalization he has attempted to contact patient's sister Sena via [employer] and explained patients condition and resent hospitalization at [facility] and request for a contact number but has not been successful with the responses. According to Mr. Kyaw Shetty will not provide her contact information. Mrs. Bernabe also stated that his brother Roger Bernabe is to be released from [facility] today or tomorrow and will informed him of Patient's location and information to come see her, however; also stated that he can be violent when intoxicated, therefore is very important to set limmits with him when visiting patient. Explained that patient's is not allowed in [facility] due to his behaviors, Stated " Im just giving you heads up for when he goes and visits Patient at the hospital " I thanked him for his information and reminded him that if he is to get patient's sister's Sena contact number to please let these expert medical writer know. Mr. Kyaw Bernabe agreed to call if he has updated information. I thanked him and ended the call.
--- NOTE | 2017-11-03 13:30 | NUR ---
NEOSYNEPHRINE DRIP STARTED AT 50 MCG/MIN. SBP IN 80'S PER DOPPLER.
[2017-11-03] MEDS: PHENYLEPHRINE 40 MG in NACL 0.9% 250 ML IV PRN ×3 (13:35→23:37)
--- NOTE | 2017-11-03 14:00 | NUR ---
DR YI IS IN THE ROOM INSERTING A-LINE TO THE PATIENT.
--- NOTE | 2017-11-03 14:20 | NUR ---
Athletic Scout Notes: Patient's brother In Law Kyaw Bernabe call me back stating that he made contact with Patient's sister Sena and that she denied him to have her contact number and stated " I will not Provide my phone number or contact information to any one; I do not want anybody to call me, I do not whish to have nothing to do with my Sister Tank " I thanked Mrs. Kyaw Bernabe for the effort to communicate with patient's family and the information provided.
--- NOTE | 2017-11-03 15:08 | NUR ---
11/03/17 RD FOLLOW UP COMPLETED PLEASE REFER TO NUTRITION ASSESSMENT UNDER CARE ACTIVITY FOR ESTIMATED NUTRITIONAL NEEDS. 1. RECOMMEND GLUCERNA 1.2 AT GOAL RATE OF 55 ML/HR. STARTING RATE 10 ML/HR, INCREASE BY 10 ML/HR Q6H. -THIS WILL PROVIDE 1320 ML, 1584 KCAL, AND 79 GM PROTEIN, MEETING 100% OF ESTIMATED NEEDS. 2. WATER FLUSH [address] TO FOLLOW-UP 2-3 DAYS, HIGH RISK JAROD GARCIA RD
[2017-11-03 15:19] LABS: HEMATOCRIT 38.6 % (36-48); HEMOGLOBIN 11.2 g/dL (12.0-16.0); MEAN CORPUSCULAR HEMOGLOBIN 31 pg (27-31); MEAN CORPUSCULAR HGB CONC 29 g/dL (33-37); MEAN CORPUSCULAR VOLUME 106.7 fL (80-94); PLATELET COUNT (AUTO) 148 K/uL (140-450); RED BLOOD CELL COUNT(AUTO) 3.62 MIL/uL (4.20-5.40); RED CELL DISTRIBUTION WIDTH 17.3 % (11.6-13.7)
[2017-11-03 15:22] LABS: WHITE BLOOD COUNT (AUTO) 32.9 K/uL (4.8-10.8)
--- NOTE | 2017-11-03 15:22 | NUR ---
VENT CHECK, NO SXN NO RETURN AT THIS TIME, CANT OBTAIN AN O2 SAT AT THIS TIME
--- NOTE | 2017-11-03 15:30 | NUR ---
SBP IN 80'S. NEOSYNEPHRINE DRIP INCREASE TO 100 MCG/MIN BY COSMETICS MACHINE OPERATOR ELLEN.
--- NOTE | 2017-11-03 15:35 | NUR ---
DR THAKKAR IS IN THE UNIT. UPDATED OF STATUS AND LAB RESULTS. STATED THAT HE WILL CHECK THE MED LIST.
[2017-11-03 15:37] LABS: ALBUMIN 0.8 g/dL (3.4-5.0); ANION GAP 10.1 (8-16); CARBON DIOXIDE 16.3 mmol/L (21-32); CREATININE 1.1 mg/dL (0.6-1.3); POTASSIUM 4.4 mmol/L (3.5-5.1); TOTAL BILIRUBIN 0.5 mg/dL (0.0-1.0)
[2017-11-03 15:42] LABS: LYMPHOCYTES % (MANUAL) 7 % (20-46); MONOCYTES % (MANUAL) 12 % (5-12)
--- NOTE | 2017-11-03 15:48 | NUR ---
INCREASED VT TO 500 PER
[2017-11-03] MEDS ORDERED: VANCOMYCIN PER PHARMACY MC PRN (15:50)
[2017-11-03] MEDS ORDERED: SODIUM BICARBONATE 8.4% 100 MEQ in DEXTROSE 5% 1,000 ML IV SCH (16:00)
--- NOTE | 2017-11-03 16:00 | NUR ---
SBP IN 70'S. NEOSYNEPHRINE DRIP INCREASE TO 150 MCG/MIN. WILL CONTINUE TO MONITOR.
[2017-11-03] MEDS ORDERED: METOCLOPRAMIDE 10 MG/2 ML INJ VIAL IVP PRN (16:10)
--- NOTE | 2017-11-03 16:53 | NUR ---
VENT CHECK, PT IS RESTING RN YOVANA AT BEDSIDE AIRWAY IS PATENT NO CHANGES MADE TO VENT
[2017-11-03] MEDS: MIRTAZAPINE 15 MG TAB PO SCH (17:00)
[2017-11-03] MEDS: VANCOMYCIN 750 MG in DEXTROSE 5% 250 ML IV SCH (17:02)
[2017-11-03] MEDS: VANCOMYCIN 500 MG VIAL PO SCH ×2 (18:26→23:33)
[2017-11-03] MEDS: PHARMACY COMMENTS MC SCH (18:27)
--- NOTE | 2017-11-03 19:00 | NUR ---
REPORT GIVEN TO INCOMING MANAGER CT RN, RN CLARIZE.
--- NOTE | 2017-11-03 19:10 | NUR ---
RECEIVED REPORT FROM AM SHIFT. INITIAL ASSESSMENT COMPLETED. PT IS NON VERBAL, RESPONDS TO PAINFUL STIMULI. ATTACHED TO SYSTEMS ARCHITECTURE ANALYST. NGT IN PLACE. PULSE OXIMETER. IV ACCESS AT RIGHT IJ TLC, PATENT, INTACT, ON LEVOPHED , NEOSYNEPHRINE DRIP AT MAX. LEFT EJ 20G, SALINE LOCK. WITH ARTERIAL LINE AT LEFT FEMORAL. [place] CATH IN PLACE, MULTIPLE SKIN TEARS, LEFT BKA, AND RIGHT TOES AMPUTATION. PT FLAT ON BED AT THIS TIME. PT UNSTABLE. BED IN LOW POSITION, ISOLATION PRECAUTION SAFETY MEASURE ENSURE. WILL CONTINUE TO MONITOR.
[2017-11-03] MEDS: LACTULOSE 20 GM/30 ML UDC NG SCH (20:40)
[2017-11-03] MEDS: ATORVASTATIN 20 MG TAB PO SCH (20:41)
--- NOTE | 2017-11-03 20:55 | NUR ---
DR. KING IN TO SEE PATIENT. UPDATED OF PATIENT'S CONDITION.
--- NOTE | 2017-11-03 21:00 | NUR ---
DUE MEDS GIVEN. PT'S HEAD ELEVATED AT 30 DEGREES AT THIS TIME. WILL CONTINUE TO MONITOR.
[2017-11-03] MEDS: VASOPRESSIN 20 UNITS in NACL 0.9% 250 ML IV PRN (21:40)
--- NOTE | 2017-11-03 21:42 | NUR ---
VASOPRESSIN STARTED, BP 73/49, PT'S CONDITION IS UNSTABLE, DR. MCCALLUM NOTIFIED. TUBE FEEDING NOT STARTED, CLARIFIED WITH DR. MCCALLUM AND STATED TO HOLD FEEDING AT THIS TIME. PT IS ON FLAT ON BED AT THIS TIME. WILL CONTINUE TO MONITOR. Addendum: 11/03/17 at 2323 by Luiz Cabral RN DR. VARGAS
--- NOTE | 2017-11-03 22:05 | NUR ---
DR. MCCALLUM AWARE THAT PT IS NO LONGER RESPONDING TO PAINFUL STIMULI. DR. MCCALLUM IN THE [facility] ROOM. UPDATED OF PATIENT'S CONDITION. WILL CONTINUE TO MONITOR. Addendum: 11/03/17 at 2322 by Luiz Cabral RN DR. VARGAS
--- NOTE | 2017-11-03 22:30 | NUR ---
CALLED LAB AND SPOKE TO EZRA TO FOLLOW UP WITH BLOOD CULTURE ORDER AT [address] YI AND [address] KING CANCELLED BY EZRA DUE TO DUPLICATE ORDER.
[2017-11-04] VITALS (83 sets, daily range): BP systolic 0–156; BP diastolic 0–82
[2017-11-04] MEDS: PHARMACY COMMENTS MC SCH ×3 (00:29→12:00)
--- NOTE | 2017-11-04 01:18 | NUR ---
O2 SAT 36-50%, PULSE OXIMETER UNABLE TO HEAD FIELD HOCKEY COACH, DR. VARGAS, RT LULA, AND CHARGE NURSE AWARE. WILL CONTINUE TO MONITOR.
--- NOTE | 2017-11-04 01:50 | NUR ---
BSL = 62MG/DL , DR. VARGAS AWARE, WITH ORDER MADE. D50 IVP GIVEN ORDERED. WILL CONTINUE TO MONITOR. Addendum: 11/04/17 at 0721 by Luiz Cabral RN TUBE FEEDING STILL ON HOLD. DR. VARGAS AWARE.
[2017-11-04] MEDS ORDERED: DEXTROSE 50% 50 ML SYR IVP SCH (02:00)
--- NOTE | 2017-11-04 02:33 | NUR ---
BSL RECHECKED= 103MG/DL. WILL CONTINUE TO MONITOR.
[2017-11-04] MEDS: NOREPINEPHRINE 8 MG in DEXTROSE 5% 250 ML IV PRN ×4 (02:52→19:04)
[2017-11-04] MEDS: GABAPENTIN 300 MG CAP PO SCH ×2 (05:15→12:09)
[2017-11-04] MEDS: VANCOMYCIN 500 MG VIAL PO SCH ×2 (05:16→12:10)
[2017-11-04] MEDS: PIPER/TAZO 3.375GM/D5W PREMIX 50 ML IV SCH ×2 (05:16→12:09)
[2017-11-04] MEDS: PHENYLEPHRINE 40 MG in NACL 0.9% 250 ML IV PRN ×4 (05:18→19:19)
[2017-11-04 05:29] LABS: CREATININE 1.2 mg/dL (0.6-1.3)
[2017-11-04 05:31] LABS: PROTHROMBIN TIME 22.6 secs (10.8-13.4)
[2017-11-04 05:33] LABS: MAGNESIUM 2.4 mg/dL (1.8-2.4); PHOSPHORUS 5.9 mg/dL (2.5-4.9)
--- NOTE | 2017-11-04 05:35 | NUR ---
MORNING CARE DONE. NO SIGNS OF DISTRESS NOTED. WILL CONTINUE TO MONITOR.
[2017-11-04 05:46] LABS: CARBON DIOXIDE 13.2 mmol/L (21-32); POTASSIUM 5.2 mmol/L (3.5-5.1)
--- NOTE | 2017-11-04 06:11 | NUR ---
DR. VARGAS AWARE OF K = 5.2 AND WBC 32.4. UPDATED OF PATIENT'S CONDITION. WILL CONTINUE TO MONITOR.
--- NOTE | 2017-11-04 06:30 | NUR ---
DR. VARGAS AWARE OF INTAKE AND OUTPUT. WILL CONTINUE TO MONITOR.
[2017-11-04] MEDS: BLOOD GLUCOSE MONITORING 1 DEV DEV FS SCH ×3 (06:31→16:06)
--- NOTE | 2017-11-04 07:17 | NUR ---
REPORT GIVEN TO JOCELYNE GRAYSON FOR CONTINUITY OF CARE. PT'S DENTURES ENDORSED TO JOCELYNE GRAYSON.
--- NOTE | 2017-11-04 07:30 | NUR ---
RECEIVED REPORT FROM PM NURSE, PT DOES NOT OPEN EYES, UNRESPONSIVE TO NAME STIMULI OR LIGHT PAIN STIMULI. BEDSIDE MONITOR SHOWS A-FIB , PT HYPOTENSIVE,RIGHT IJ TLC HAS LEVOPHED AND JANELLE-SYNEPHRINE MAX AND VASOPRESSIN AT 0.01 UNITS/MIN. ETT TO VENT WITH SETTING FIO2 =100%, TV 500, AC 20, PEEP 5. NG TUBE TO RIGHT NARES. PT HAS LEFT EJ # 20, SALINE LOCK. PT ALSO HAS A-LINE TO RIGHT FEMORAL, A-LINE SITE IS BLEEDING, WILL CHANGE DRESSING AND COVER WITH ICE BAG. ALL THE UPPER EXTREMITIES ARE OOZING, LEFT BKA AND RIGHT TOES AMPUTATION. MULTIPLE SKIN TEAR,PT FLAT IN BED DUE TO PT UNSTABLE. CONTACT ISOLATION, WILL CONTINUE TO MONITOR.
--- NOTE | 2017-11-04 08:00 | NUR ---
TURNED AND REPOSITIONED PT, TEMP CHECKED 96.1 F, WILL GO OR TO GET HEATING BLANKET, MODERATE AMOUNT OF BLOOD NOTED ON BEDSHEET, NOTIFIED CHARGE NURSE. A-LINE SITE COVERED WITH ICE BAG.
[2017-11-04 08:03] LABS: MEAN CORPUSCULAR HEMOGLOBIN 31 pg (27-31)
--- NOTE | 2017-11-04 08:15 | NUR ---
CALLED KARENA AORRA AND LEAVE MASSAGE.
[2017-11-04 08:16] LABS: HEMATOCRIT 33.2 % (36-48); HEMOGLOBIN 9.3 g/dL (12.0-16.0); MEAN CORPUSCULAR HGB CONC 28 g/dL (33-37); MEAN CORPUSCULAR VOLUME 111.6 fL (80-94); RED BLOOD CELL COUNT(AUTO) 2.97 MIL/uL (4.20-5.40); WHITE BLOOD COUNT (AUTO) 32.4 K/uL (4.8-10.8)
[2017-11-04 08:17] LABS: RED CELL DISTRIBUTION WIDTH 17.2 % (11.6-13.7)
[2017-11-04 08:18] LABS: PLATELET COUNT (AUTO) 61 K/uL (140-450)
[2017-11-04] MEDS: ALBUTEROL SULFATE/IPRATROPIU 3 ML SOL IH SCH ×3 (08:22→13:48)
--- NOTE | 2017-11-04 08:23 | NUR ---
RECEIVED ON A [employer] VENTILATOR PLUGGED INTO RED OUTLET TOLERATING WELL WITHOUT ADVERSE REACTIONS NOTED TO A ENDOTRACHEAL TUBE #7.0 SECURED WITH AN ANCHOR FAST AT 18cm CUFF PRESSURE CHECKED NOTED AMBU BAG AT BEDSIDE LOC NO RESPONSIVE BREATH SOUNDS CLEAR BILATERAL WITH GOOD CHEST RISE AND AERATION AIRWAY PATENT
--- NOTE | 2017-11-04 08:25 | NUR ---
KARENA ARORA RETURN CALL. INFORM HIM ABOUT PT. CONDITION AND HAVE HIM TALK TO DR. YI . HE WILL TRY TO GET IN TOUCH WITH PATIENT ERIC TO TELL US REGARDING PT. CODE STATUS.
--- NOTE | 2017-11-04 08:40 | NUR ---
NOTIFIED PT IS BLEEDING ON A-LINE SITE, COVERED WITH ICE BAG AND LOW TEMP , PT IS ON HEATING BLANKET AT THIS MOMENT.
[2017-11-04] MEDS: LACTULOSE 20 GM/30 ML UDC NG SCH (08:51)
[2017-11-04] MEDS: FAMOTIDINE 20 MG TAB PO SCH (08:52)
[2017-11-04] MEDS: LACTOBACILLUS RHAMNOSUS GG 1 EACH CAP PO SCH (08:52)
[2017-11-04] MEDS: SENNA 8.6 MG TAB PO SCH (08:52)
[2017-11-04] MEDS: DOCUSATE SODIUM 100 MG GELCAP PO SCH (08:52)
[2017-11-04] MEDS: AMIODARONE 200 MG TAB PO SCH (08:53)
[2017-11-04] MEDS: MULTIVITAMIN 1 TAB PO SCH (08:54)
--- NOTE | 2017-11-04 08:57 | NUR ---
NO CHANGE LOC BREATH SOUNDS CLEAR BILATERAL WITH GOOD CHEST RISE
[2017-11-04] MEDS ORDERED: PANTOPRAZOLE 40 MG INJ VIAL IVP SCH (09:00)
[2017-11-04] MEDS ORDERED: EPOETIN ALFA 10,000 UNITS/ML VIAL SUBQ SCH ×2 (09:00)
[2017-11-04] MEDS ORDERED: SODIUM POLYSTYRENE 15 GM/60 ML UDBTL NG SCH (09:10)
[2017-11-04] MEDS: DEXTROSE 50% 50 ML SYR IVP PRN (09:15)
[2017-11-04] MEDS: HYDRAGUARD CREAM TP SCH (09:25)
[2017-11-04 09:30] LABS: LYMPHOCYTES % (MANUAL) 9 % (20-46); METAMYELOCYTES % 1 % (0-0); MONOCYTES % (MANUAL) 10 % (5-12); MYELOCYTES % 1 % (0-0)
[2017-11-04] MEDS ORDERED: FUROSEMIDE 20 MG/2 ML VIAL IVP SCH (10:20)
[2017-11-04] MEDS ORDERED: SODIUM BICARBONATE 8.4% 50 MEQ/50 ML VIAL INJ SCH (10:20)
--- NOTE | 2017-11-04 10:20 | NUR ---
TURNED AND REPOSITIONED IT, MODERATE AMOUNT OF BLOOD NOTED ON BED SHEET, BEDSHEET CHANGED.
--- NOTE | 2017-11-04 10:36 | NUR ---
Vt CHANGE TO [address] FREDI YI ORDER ABG SAMPLE REPORT REVIEWED WITH FORE MENTIONED AND DR. MAICO THAKKAR
[2017-11-04] MEDS ORDERED: SODIUM BICARBONATE 8.4% 50 MEQ/50 ML VIAL IV SCH (10:43)
--- NOTE | 2017-11-04 11:21 | NUR ---
WOUND CARE EVALUATION NOTE: REASON FOR WOUND EVALUATION: PRESSURE ULCER TO LEFT BKA STUMP SKIN ASSESSMENT DONE WITH PRIMARY RN ON THIS 62 Y/O FEMALE PATIENT FROM [facility] TO [facility], WITH INITIAL DIAGNOSIS OF COUGH AND LEFT KNEE PAIN. PAST MEDICAL HISTORY INCLUDE HI, DM, HTN, A FIB, COPD, LEFT BKA AND RIGHT TOES AMPUTATION X 5 DIGIT. PT. ADMITTED WITH UNSTAGEABLE PRESSURE INJURY TO LEFT KNEE AND LEFT STUMP. ALL ABOVE INFORMATION WAS OBTAINED FROM THE ADMISSION H&P. PT SKIN COLD TO TOUCH, PALE IN COLOE EDMA TO UPPER EXTREMITIES, ABDOMEN AND BILATERAL THIGHS. PT MEDICAL CONDITION IS UNSTABLE. PLAN OF CARE AND PRESSURE PREVENTIVE MEASURES DISCUSSED WITH PRIMARY RN. COMORBIDITIES FOR WOUND HEALING: INFECTION, CHRONIC WOUND, DM, HOB ELEVATED MAJORITY OF THE DAY FOR MEDICAL CONDITIONS, CHRONIC INCONTINENT OF BOWEL. INTEGUMENTARY: -MULTIPLE ECCHYMOSIS TO UPPER CHEST AND UPPER EXTREMITIES WITH +2 EDEMA, WEEPING, FRAGILE THIN SKIN -SACROCOCCYX CHRONIC WOUND PRESSURE ULCER INJURY STAGE 1, 1.5X2 CM, WOUND BED COLOR RED AND SURROUNDING REDNESS WITH 3X3 CM INDICATED FURTHER DAMAGE -LEFT HIP PRESSURE INJURY STAGE 1 WITH 1.5X1.5 CM AND SURROUNDING SKIN IN PURPLE COLOR -LEFT KNEE PRESSURE INJURY UN-STAGEABLE, 3X4CM WITH ELISEO-WOUND SKIN ABRASION IN PURPLE COLOR -LEFT STUMP PRESSURE INJURY UN-STAGEABLE, 4X5 CM, ELISEO-WOUND SKIN INTACT RECOMMENDATIONS: -APPLY SKIN PREP TO UPPER EXTREMITIES BIDWC AND LEAVE IT OPEN TO AIR -APPLY OPTICFORM DRESSING TO LEFT HIP AND SACRALCOCCYX QD AND CHANGE PRN IF SOILING -PAINT LEFT KNEE AND LEFT STUMP WITH BETADINE SOLUTION BID AND LEAVE IT OPEN TO AIR. -APPLY HYDRAGUARD TO R/L BUTTOCKS BIDWC AND PRN IF SOILING -TURN AND REPOSITION PATIENT Q2H -ASSESS AND MONITOR SKIN CONDITION DURING POSITION CHANGE, PLEASE PAY ATTENTION TO SACROCOCCYX AND LEFT HIP -OFFLOAD BILATERAL HEELS BY PLACING PILLOWS UNDER CALVES AT ALL TIMES, UNLESS OTHERWISE CONTRAINDICATED-KEEP -KEEP SKIN CLEAN AND DRY AT ALL TIMES. -PRESSURE REDISTRIBUTION SURFACE THERAPY RECOMMENDATIONS DISCUSSED WITH PRIMARY RN WILL FOLLOW UP PATIENT Q 7-10 DAYS AND PRN. PLEASE CONTACT WOUND CARE NURSE FOR ANY QUESTIONS AND CHANGES IN WOUND CONDITION.
[2017-11-04] MEDS ORDERED: SODIUM BICARBONATE 8.4% PFS 50 MEQ/50 ML SYR IVP SCH ×2 (11:30→15:01)
--- NOTE | 2017-11-04 12:17 | NUR ---
RESTING COMFORTABLY NO SOB NOTED BREATH SOUNDS CLEAR BILATERAL WITH GOOD CHEST RISE ABG VIA ARTERIAL LINE DRAWN AT THIS TIME
--- NOTE | 2017-11-04 12:33 | NUR ---
CALLED DR MEREDITH YI [id number] TO REVIEW [facility] SAMPLE REPORT "NO ANSWER" Addendum: 11/04/17 at 1254 by Enzo Alcaraz RT "FREDI"
--- NOTE | 2017-11-04 12:43 | NUR ---
CALLED DR. FREDI YI [id number] TO REVIEW [facility] SAMPLE REPORT "NO ANSWER"
--- NOTE | 2017-11-04 12:50 | NUR ---
CALLED DR. FREDI YI [id number] SONU ROA COVERING FOR FOREMENTIONED MD DR ROA STATES "I WILL LOOK AT RESULTS"
[2017-11-04] MEDS ORDERED: MEROPENEM 1,000 MG in NACL 0.9% 100 ML IV SCH (13:00)
[2017-11-04 15:13] LABS: HEPATITIS A ANTIBODY IGM Negative (Negative); HEPATITIS B CORE AB TOTAL Negative (Negative); HEPATITIS B SURFACE ANTIBODY Non Reactive (.); HEPATITIS B SURFACE ANTIGEN Negative (Negative)
--- NOTE | 2017-11-04 15:34 | NUR ---
FINGER BS 28, D 50 IVP GIVEN .PT STILL IN UNSTABLE STATUS. HYPOTENSION, O2 SATS 75%. ALL EXTREMITIES ARE FLACCID.
[2017-11-04] MEDS: VASOPRESSIN 20 UNITS in NACL 0.9% 250 ML IV PRN (15:56)
[2017-11-04] MEDS ORDERED: SODIUM BICARBONATE 8.4% 150 MEQ in DEXTROSE 5% 1,000 ML IV SCH (16:00)
[2017-11-04] MEDS: VANCOMYCIN 750 MG in DEXTROSE 5% 250 ML IV SCH ×2 (16:23→16:31)
--- NOTE | 2017-11-04 16:25 | NUR ---
NO DISTRESS NOTED GOOD CHEST RISE
[2017-11-04] MEDS: MIRTAZAPINE 15 MG TAB PO SCH (16:33)
--- NOTE | 2017-11-04 17:26 | NUR ---
FINGER BS 132 .PT STILL IN UNSTABLE STATUS. HYPOTENSION, O2 SATS 70%. ALL EXTREMITIES ARE FLACCID.
--- NOTE | 2017-11-04 17:40 | NUR ---
NO CHANGE LOC BREATH SOUNDS CLEAR BILATERAL WITH GOOD CHEST RISE AND AERATION THROUGHOUT AIRWAY PATENT
--- NOTE | 2017-11-04 18:40 | NUR ---
code blue was call due to hr 41, cpar started, dr lainez at bed side, cpr in progres. moe rt at bed side, stoped at 1905 and placed pt on the vent.
--- NOTE | 2017-11-04 18:40 | NUR ---
PT HR DROOPED, CODE BLUE ACTIVATED.
--- NOTE | 2017-11-04 19:15 | NUR ---
RN CALL ME THAT JOCELYNE ARROYO DANNI THE INSPIRATORY FILTER, AND I DISCONNECTED PT AND START BAG PT AND CALL BREN[facility] TO GET OTHER FILTER, AND PLACED PT BACH ON THE VENT
--- NOTE | 2017-11-04 19:24 | NUR ---
SPOKE WITH KARENA INFORMED THAT PT IS POST CODE BLUE AND EXPLAINED THAT PT IS CRITICAL AND UNSTABLE AND WILL LIKELY CODE AGAIN. ASKED ABOUT CODE STATUS AND POTENTIAL CHANGE TO DNR. CONTINUED FULL CODE WILL CALL PTS AND CALL US BACK.
--- NOTE | 2017-11-04 19:30 | NUR ---
RECEIVED BEDSIDE REPORT FROM RENUKA. PATIENT CODED 1640. NON-RESPONSIVE TO VOICE AND PAIN. NO PUPILS REACTION TO LIGHT, 5MM BOTH EYES NOTED. ETT TO VENT WITH SETTING A/C MODE FIO2 100%, VT 600, RATE 20, PEEP 5. BILATERAL LUNGS SOUND CRACKLES AND DIMINISHED NOTED. PALE FACE WITH CYANOTIC EARS AND BILATERAL LOWER EX'S NOTED. O2 SAT 79% NOTED. PATIENT HAS CENTRAL LINE TO RIGHT IJ TRIPLE LUMENS AND A LINE TO RIGHT FEMORAL, PERIPHERAL LINE TO LEFT EJ NOTED. CENTRAL LINE AND PERIPHERAL LINE IS INTACT AND PATENT, RUNNING WITH VASOPRESSIN 0.04 UNIT/MIN, LEVOPHED 30MCG/MIN, JANELLE-SYNEPHRINE 150MCG/MIN AND D5 100ML/HR NOTED. BLEEDING NOTED FROM A LINE. NGT TO RIGHT NARES TO FEEDING ON HOLD AT THIS TIME, PLACEMENT CHECKED, RESIDUAL OVER 150CC NOTED. SKIN IS NON INTACT, BILATERAL UPPER EX'S ECCHYMOSES AND EDEMATOUS NOTED FLUID OOZING OUT FROM SKIN. LEFT BKA AND RIGHT TOES AMPUTATION NOTED. [place] CATH IN PLACE DRAINING CLEAR YELLOW URINE NOTED. VITAL SIGNS ARE NOT STABLE. WILL CONTINUE TO MONITOR.
--- NOTE | 2017-11-04 19:55 | NUR ---
CALLED [facility], CPR STARTED, DR SWEENEY CALL OFF AT 2004, PT
--- NOTE | 2017-11-04 20:06 | NUR ---
PRONOUNCE BY DR. MERISSA HATFIELD. Addendum: 11/04/17 at 2228 by Milagros Angeles RN SEE [facility] RECORD.
--- NOTE | 2017-11-04 20:20 | NUR ---
PHONE CALL MADE TO PTS BROTHER IN LAW KARENA ARORA ([phone]); NOK. DR VARGAS SPOKE WITH HIM AND NOTIFIED OF .
--- NOTE | 2017-11-04 20:25 | NUR ---
PHONE CALL MADE TO [facility]; NO ANSWER
--- NOTE | 2017-11-04 20:35 | NUR ---
PHONE CALL TO [facility] AGAIN; SPOKE WITH KRISHAN.QUESTIONS ANSWERED.BODY RELEASED
--- NOTE | 2017-11-04 23:00 | NUR ---
RECEIVED CALL FROM BUILDING CARPENTER BOBBY MERCADO, BODY RELEASED BY BUILDING CARPENTER, .
--- NOTE | 2017-11-04 23:05 | NUR ---
PHONE CALL TO [facility], SPOKE WITH SANDRA, SHE WILL CALL US BACK.
--- NOTE | 2017-11-05 01:00 | NUR ---
PATIENT'S BODY PICKED UP BY [facility].
== END 2017-11-05 01:00 | disposition expired | DRG 720 ==
LOC: MED 22:11 → MIC 10-31 04:32
PROVIDERS: ADMIT Family Medicine; ATTEND Family Medicine
PROC: 5A1945Z Respiratory Ventilation, 24-96 Consecutive Hours (ICD-10-PCS; principal; 2017-11-03)
PROC: 5A09357 Assistance with Respiratory Ventilation, Less than 24 Consecutive Hours, Continuous Positive Airway Pressure (ICD-10-PCS; 2017-11-03)
PROC: 0BH17EZ Insertion of Endotracheal Airway into Trachea, Via Natural or Artificial Opening (ICD-10-PCS; 2017-11-03)
PROC: 04HK33Z Insertion of Infusion Device into Right Femoral Artery, Percutaneous Approach (ICD-10-PCS; 2017-11-03)
PROC: 5A12012 Performance of Cardiac Output, Single, Manual (ICD-10-PCS; 2017-11-03)
PROC: 02HV33Z Insertion of Infusion Device into Superior Vena Cava, Percutaneous Approach (ICD-10-PCS; 2017-11-03)
PROC: B548ZZA Ultrasonography of Superior Vena Cava, Guidance (ICD-10-PCS; 2017-11-03)
DX: A41.9 Sepsis, unspecified organism (principal); J96.00 Acute respiratory failure, unspecified whether with hypoxia or hypercapnia; R65.21 Severe sepsis with septic shock; J69.0 Pneumonitis due to inhalation of food and vomit; E43 Unspecified severe protein-calorie malnutrition; G93.41 Metabolic encephalopathy; I50.43 Acute on chronic combined systolic (congestive) and diastolic (congestive) heart failure; E11.52 Type 2 diabetes mellitus with diabetic peripheral angiopathy with gangrene; D68.59 Other primary thrombophilia; I46.9 Cardiac arrest, cause unspecified; J44.0 Chronic obstructive pulmonary disease with (acute) lower respiratory infection; I48.91 Unspecified atrial fibrillation; E83.42 Hypomagnesemia; Z68.21 Body mass index [BMI] 21.0-21.9, adult; K08.109 Complete loss of teeth, unspecified cause, unspecified class; E11.69 Type 2 diabetes mellitus with other specified complication; E87.0 Hyperosmolality and hypernatremia; E87.5 Hyperkalemia; I11.0 Hypertensive heart disease with heart failure; N39.0 Urinary tract infection, site not specified; R74.0 Nonspecific elevation of levels of transaminase and lactic acid dehydrogenase [LDH]; R23.3 Spontaneous ecchymoses; Z16.12 Extended spectrum beta lactamase (ESBL) resistance; K70.30 Alcoholic cirrhosis of liver without ascites; S61.511A Laceration without foreign body of right wrist, initial encounter; X58.XXXA Exposure to other specified factors, initial encounter; K59.09 Other constipation; I25.5 Ischemic cardiomyopathy; D64.9 Anemia, unspecified; K72.90 Hepatic failure, unspecified without coma; B96.20 Unspecified Escherichia coli [E. coli] as the cause of diseases classified elsewhere; F03.90 Unspecified dementia, unspecified severity, without behavioral disturbance, psychotic disturbance, mood disturbance, and anxiety; I25.10 Atherosclerotic heart disease of native coronary artery without angina pectoris; Z89.512 Acquired absence of left leg below knee; Z89.612 Acquired absence of left leg above knee; Z89.021 Acquired absence of right finger(s); I25.2 Old myocardial infarction; Z74.01 Bed confinement status; Y93.89 Activity, other specified; Y92.89 Other specified places as the place of occurrence of the external cause; Y99.8 Other external cause status
CPT/HCPCS: 36415; 36600; 70450; 71045; 74018; 80048; 80053; 81001; 82040; 82140; 82803; 82948; 83036; 83605; 83690; 83735; 83880; 84100; 84436; 84439; 84443; 84479; 85025; 85610; 85730; 86704; 86706; 86708; 86709; 86803; 87040; 87070; 87081; 87086; 87186; 87205; 87340; 89220; 93005; 93925; 93930; 93970; 94002; 94003; 94640; 94660; 99285; C9113; J1642; J1644; J1815; J1940; J2001; J2185; J2370; J2543; J3370; J3475; J3480; J3490; J7030; J7042; J7060; J7620; P9041; Q0092